=== PATIENT | male | born 1945 | race Caucasian/White ===

== ENCOUNTER 2021-09-25 15:06 | Inpatient (IN) ==
[2021-09-25 16:00] LABS: ABS Basophils 0.1 10^3/ul (0-0.2); ABS Lymphocytes 0.8 10^3/ul (1.0-4.8); ABS Monocytes 0.7 10^3/ul (0-0.8); ABS Neutrophils 7.7 10^3/ul (1.5-7.7); Eosinophil % 0.4 %; Hematocrit 41 % (42-52); Hemoglobin 13.1 g/dL (14.0-18.0); Lymphocyte % 8.7 %; Mean Corpuscular HGB Conc 32 g/dL (31-36); Mean Corpuscular Hemoglobin 26 pg (27-31); Mean Corpuscular Volume 80 fL (80-94); Mean Platelet Volume 8.2 fL (7.4-10.4); Nucleated Red Blood Cells % 0.1; Platelet Count 209 10^3/uL (150-450); Red Cell Distribution Width 17 % (10-15); White Blood Count 9.2 10^3/uL (3.5-10.8)
[2021-09-25 16:19] LABS: ALT 11 U/L (7-52); AST 18 U/L (13-39); Albumin 4.2 g/dL (3.2-5.2); Albumin/Globulin Ratio 1.5 (1-3); Alkaline Phosphatase 72 U/L (35-149); Anion Gap 6 mmol/L (2-11); Blood Urea Nitrogen 17 mg/dL (6-24); C Reactive Protein 33.72 mg/L (<8.01); CO2 Carbon Dioxide 29 mmol/L (22-32); Calcium 10.6 mg/dL (8.6-10.3); Chloride 104 mmol/L (101-111); Globulin 2.8 g/dL (2-4); Glucose 111 mg/dL (70-100); Potassium 3.6 mmol/L (3.5-5.0); Sodium 139 mmol/L (135-145)
[2021-09-25 16:22] LABS: Troponin I 0.68 ng/mL (<0.03)
[2021-09-25 16:33] LABS: Influenza A Molecular Negative (Negative); Influenza B Molecular Negative (Negative); Rapid COVID-19 Molecular Undetected (Undetected)
[2021-09-25] MEDS ORDERED: Magnesium Hydroxide LIQ 30 ML UDC PO PRN (17:51)
[2021-09-25] MEDS ORDERED: Ondansetron 4 mg VIAL 2 MG/ML 2 ml VIAL IV PRN (17:51)
[2021-09-25] MEDS ORDERED: Iodixanol (CONTRAST) 320 MG/ML 100 ML SDV IV ONE (18:02)
[2021-09-25 18:44] LABS: Urine Appearance Clear; Urine Bilirubin Negative (Negative); Urine Blood Negative (Negative); Urine Color Yellow; Urine Glucose Negative (Negative); Urine Ketones Negative (Negative); Urine Nitrite Negative (Negative); Urine Protein Negative (Negative); Urine Specific Gravity 1.014 (1.002-1.030); Urine Urobilinogen Negative (Negative)
[2021-09-25] MEDS ORDERED: Heparin 5000 UNITS/ML 1 mL VIAL IV SCH (19:00)
[2021-09-25 19:28] LABS: Troponin I 0.94 ng/mL (<0.03)
[2021-09-25 20:21] LABS: TSH Ultra Thyroid Stim Horm 1.93 mcIU/mL (0.34-5.60)
[2021-09-25 20:42] LABS: Calcium (PTH Intact) 10.5 mg/dL (8.6-10.3)
[2021-09-25] MEDS ORDERED: Lithium Carb ER 300 mg TAB(NF) PO SCH (21:00)
[2021-09-25] MEDS: Heparin DRIP 25,000 UNITS BAG 25,000 UNITS/500 ML BAG IV SCH (21:31)
[2021-09-25] MEDS: buPROPion SR 100 mg TAB.SR PO SCH (23:01)
[2021-09-26 01:30] LABS: Troponin I 0.67 ng/mL (<0.03)
[2021-09-26 03:40] LABS: ABS Basophils 0.1 10^3/ul (0-0.2); ABS Eosinophils 0.1 10^3/ul (0-0.6); ABS Lymphocytes 1.5 10^3/ul (1.0-4.8); ABS Monocytes 0.8 10^3/ul (0-0.8); ABS Neutrophils 6.6 10^3/ul (1.5-7.7); Eosinophil % 0.9 %; Hematocrit 39 % (42-52); Hemoglobin 12.5 g/dL (14.0-18.0); Lymphocyte % 16.9 %; Mean Corpuscular HGB Conc 32 g/dL (31-36); Mean Corpuscular Hemoglobin 26 pg (27-31); Mean Corpuscular Volume 80 fL (80-94); Platelet Count 200 10^3/uL (150-450); Red Blood Count 4.86 10^6 /uL (4.18-5.48); Red Cell Distribution Width 17 % (10-15); White Blood Count 9.1 10^3/uL (3.5-10.8)
[2021-09-26 03:51] LABS: Calcium 10.1 mg/dL (8.6-10.3); Potassium 3.3 mmol/L (3.5-5.0)
[2021-09-26 03:56] LABS: HDL Cholesterol 54.3 mg/dL; eGFR CKD-EPI 42.2 (>60)
[2021-09-26 04:41] LABS: Ferritin 26.8 ng/mL (24-336)
[2021-09-26] MEDS ORDERED: Aspirin EC 81 mg TAB.EC (enteric coated) PO SCH (09:00)
[2021-09-26] MEDS: CMCS:Lithium Carb ER 300 mg TAB(NF) PO SCH (09:13)
[2021-09-26] MEDS: Potassium Chlor 20 meq TAB.ER PO SCH ×2 (10:18→13:05)
[2021-09-26] MEDS ORDERED: Perflutren Lipid Microsphere 3 ML VIAL ONE (12:08)
[2021-09-26] MEDS: Polyethylene Glycol 3350 17 GM PACKET PO SCH (13:01)
[2021-09-26] MEDS: Heparin DRIP 25,000 UNITS BAG 25,000 UNITS/500 ML BAG IV SCH (14:02)
[2021-09-26] MEDS: buPROPion SR 100 mg TAB.SR PO SCH (21:47)
[2021-09-27 06:33] LABS: ABS Basophils 0.1 10^3/ul (0-0.2); ABS Eosinophils 0.1 10^3/ul (0-0.6); ABS Lymphocytes 1.2 10^3/ul (1.0-4.8); ABS Monocytes 0.8 10^3/ul (0-0.8); ABS Neutrophils 6.9 10^3/ul (1.5-7.7); Eosinophil % 0.9 %; Hematocrit 36 % (42-52); Hemoglobin 11.4 g/dL (14.0-18.0); Mean Corpuscular HGB Conc 32 g/dL (31-36); Mean Corpuscular Hemoglobin 26 pg (27-31); Mean Corpuscular Volume 82 fL (80-94); Mean Platelet Volume 8.3 fL (7.4-10.4); Platelet Count 201 10^3/uL (150-450); Red Blood Count 4.41 10^6 /uL (4.18-5.48); Red Cell Distribution Width 17 % (10-15)
[2021-09-27 06:51] LABS: Potassium 3.5 mmol/L (3.5-5.0); eGFR CKD-EPI 49.7 (>60)
[2021-09-27] MEDS: Heparin DRIP 25,000 UNITS BAG 25,000 UNITS/500 ML BAG IV SCH (06:55)
[2021-09-27] MEDS: Polyethylene Glycol 3350 17 GM PACKET PO SCH (08:32)
[2021-09-27] MEDS: CMCS:Lithium Carb ER 300 mg TAB(NF) PO SCH (08:32)
[2021-09-27 15:35] LABS: % Iron Saturation 10 % (14 - 50); Total Iron Binding Capacity 300 mcg/dL (250 - 400); Transferrin 254 mg/dL (200 - 360)
[2021-09-27 20:34] LABS: ABS Basophils 0.1 10^3/ul (0-0.2); ABS Eosinophils 0.1 10^3/ul (0-0.6); ABS Lymphocytes 1.4 10^3/ul (1.0-4.8); ABS Monocytes 0.8 10^3/ul (0-0.8); Hematocrit 35 % (42-52); Hemoglobin 11.1 g/dL (14.0-18.0); Lymphocyte % 14.6 %; Mean Corpuscular HGB Conc 32 g/dL (31-36); Mean Corpuscular Hemoglobin 26 pg (27-31); Mean Corpuscular Volume 81 fL (80-94); Mean Platelet Volume 8.2 fL (7.4-10.4); Platelet Count 201 10^3/uL (150-450); Red Blood Count 4.26 10^6 /uL (4.18-5.48); Red Cell Distribution Width 17 % (10-15); White Blood Count 9.4 10^3/uL (3.5-10.8)
[2021-09-27 20:34] LABS: Venous Bicarbonate HCO3 28.5 mmol/L (24-28)
[2021-09-27 20:52] LABS: Calcium 9.8 mg/dL (8.6-10.3); Potassium 3.8 mmol/L (3.5-5.0); eGFR CKD-EPI 46.2 (>60)
[2021-09-27] MEDS: Iron Sucrose 200 MG in NS 0.9% 100 ml BAG 100 ML IVPB SCH (21:57)
[2021-09-27] MEDS: buPROPion SR 100 mg TAB.SR PO SCH (21:58)
[2021-09-28] MEDS: Heparin DRIP 25,000 UNITS BAG 25,000 UNITS/500 ML BAG IV SCH ×2 (00:07→18:06)
[2021-09-28 06:06] LABS: ABS Basophils 0.1 10^3/ul (0-0.2); ABS Eosinophils 0.1 10^3/ul (0-0.6); ABS Lymphocytes 1.1 10^3/ul (1.0-4.8); ABS Monocytes 0.7 10^3/ul (0-0.8); ABS Neutrophils 6.8 10^3/ul (1.5-7.7); Eosinophil % 0.9 %; Hematocrit 37 % (42-52); Hemoglobin 11.8 g/dL (14.0-18.0); Lymphocyte % 12.5 %; Mean Corpuscular HGB Conc 32 g/dL (31-36); Mean Corpuscular Hemoglobin 26 pg (27-31); Mean Corpuscular Volume 81 fL (80-94); Mean Platelet Volume 8.1 fL (7.4-10.4); Platelet Count 198 10^3/uL (150-450); Red Blood Count 4.58 10^6 /uL (4.18-5.48); Red Cell Distribution Width 17 % (10-15); White Blood Count 8.8 10^3/uL (3.5-10.8)
[2021-09-28 06:28] LABS: Calcium 10.3 mg/dL (8.6-10.3); Potassium 3.8 mmol/L (3.5-5.0); eGFR CKD-EPI 49.7 (>60)
[2021-09-28] MEDS: CMCS:Lithium Carb ER 300 mg TAB(NF) PO SCH (08:49)
[2021-09-28] MEDS: Iron Sucrose 200 MG in NS 0.9% 100 ml BAG 100 ML IVPB SCH (08:49)
[2021-09-28] MEDS: Polyethylene Glycol 3350 17 GM PACKET PO SCH (08:49)
[2021-09-28 09:11] LABS: INR 1.19 (0.86-1.15)
[2021-09-28] MEDS ORDERED: fentaNYL 100 mcg/2 ml 50 MCG/ML VIAL ONE ×2 (09:43→14:02)
[2021-09-28] MEDS ORDERED: Heparin 2 UNITS/ML 1000 mls 1,000 ML IV ONE (09:43)
[2021-09-28] MEDS ORDERED: Lidocaine 1% VIAL 10 MG/ML VIAL ONE (13:28)
[2021-09-28] MEDS ORDERED: Iohexol 350 (CONTRAST) 200 ML MDV IV ONE (13:29)
[2021-09-28] MEDS ORDERED: Heparin 2 UNITS/ML IVPREMIX 1,000 UNIT/500 ML BAG IV ONE (13:29)
[2021-09-28] MEDS ORDERED: Iodixanol 320 (CONTRAST) 100 ML SDV ONE (13:31)
[2021-09-28] MEDS: buPROPion SR 100 mg TAB.SR PO SCH (21:51)
[2021-09-28] MEDS ORDERED: Naloxone Nasal Spray 4 MG/0.1 ML NASAL.SPR INTRANASAL ONE (23:56)
[2021-09-29 00:56] LABS: Venous Bicarbonate HCO3 29.9 mmol/L (24-28)
[2021-09-29 01:12] LABS: ABS Basophils 0.1 10^3/ul (0-0.2); ABS Eosinophils 0.1 10^3/ul (0-0.6); ABS Monocytes 0.8 10^3/ul (0-0.8); Eosinophil % 1.6 %; Hematocrit 37 % (42-52); Hemoglobin 11.8 g/dL (14.0-18.0); Lymphocyte % 11.6 %; Mean Corpuscular HGB Conc 32 g/dL (31-36); Mean Corpuscular Hemoglobin 26 pg (27-31); Mean Corpuscular Volume 81 fL (80-94); Mean Platelet Volume 8.3 fL (7.4-10.4); Platelet Count 218 10^3/uL (150-450); Red Blood Count 4.56 10^6 /uL (4.18-5.48); Red Cell Distribution Width 17 % (10-15)
[2021-09-29 01:21] LABS: Albumin 3.7 g/dL (3.2-5.2); Albumin/Globulin Ratio 1.2 (1-3); Calcium 10.5 mg/dL (8.6-10.3); Globulin 3.1 g/dL (2-4); Potassium 3.9 mmol/L (3.5-5.0); Total Bilirubin 0.7 mg/dL (0.2-1.0); Total Protein 6.8 g/dL (6.4-8.9); eGFR CKD-EPI 50.2 (>60)
[2021-09-29 07:20] LABS: eGFR CKD-EPI 52.8 (>60)
[2021-09-29] MEDS: Polyethylene Glycol 3350 17 GM PACKET PO SCH (10:21)
[2021-09-29] MEDS: Iron Sucrose 200 MG in NS 0.9% 100 ml BAG 100 ML IVPB SCH (10:21)
[2021-09-29] MEDS: CMCS:Lithium Carb ER 300 mg TAB(NF) PO SCH (10:25)
[2021-09-29 19:12] LABS: Lithium 0.53 mmol/L (0.6-1.2)
[2021-09-29] MEDS ORDERED: Furosemide 20 mg/2 ml IV VIAL IV SLOW PU ONE (19:17)
[2021-09-29] MEDS ORDERED: Iodixanol (CONTRAST) 320 MG/ML 100 ML SDV IV ONE ×2 (19:22→19:24)
[2021-09-29] MEDS: buPROPion SR 100 mg TAB.SR PO SCH (20:53)
[2021-09-30 02:06] LABS: Folate > 20.00 ng/mL (5.90-24.80)
[2021-09-30 02:07] LABS: Vitamin B12 564 pg/mL (180-914)
[2021-09-30 07:37] LABS: ABS Basophils 0.1 10^3/ul (0-0.2); ABS Eosinophils 0.1 10^3/ul (0-0.6); ABS Lymphocytes 0.9 10^3/ul (1.0-4.8); ABS Monocytes 0.6 10^3/ul (0-0.8); ABS Neutrophils 6.2 10^3/ul (1.5-7.7); Eosinophil % 1.7 %; Hematocrit 35 % (42-52); Hemoglobin 11.2 g/dL (14.0-18.0); Lymphocyte % 10.8 %; Mean Corpuscular HGB Conc 32 g/dL (31-36); Mean Corpuscular Hemoglobin 26 pg (27-31); Mean Corpuscular Volume 81 fL (80-94); Nucleated Red Blood Cells % 0.1; Platelet Count 216 10^3/uL (150-450); Red Blood Count 4.31 10^6 /uL (4.18-5.48); Red Cell Distribution Width 17 % (10-15); White Blood Count 7.9 10^3/uL (3.5-10.8)
[2021-09-30 07:54] LABS: Albumin 3.5 g/dL (3.2-5.2); Albumin/Globulin Ratio 1.1 (1-3); Calcium 10.8 mg/dL (8.6-10.3); Globulin 3.3 g/dL (2-4); Total Bilirubin 0.7 mg/dL (0.2-1.0); Total Protein 6.8 g/dL (6.4-8.9); eGFR CKD-EPI 49.3 (>60)
[2021-09-30 08:32] LABS: Lithium 0.41 mmol/L (0.6-1.2)
[2021-09-30] MEDS: Iron Sucrose 200 MG in NS 0.9% 100 ml BAG 100 ML IVPB SCH (09:17)
[2021-09-30] MEDS: CMCS:Lithium Carb ER 300 mg TAB(NF) PO SCH (09:18)
[2021-09-30] MEDS: Polyethylene Glycol 3350 17 GM PACKET PO SCH (09:20)
[2021-09-30] MEDS: buPROPion SR 100 mg TAB.SR PO SCH (21:22)
[2021-10-01] MEDS: Polyethylene Glycol 3350 17 GM PACKET PO SCH (09:20)
[2021-10-01] MEDS: CMCS:Lithium Carb ER 300 mg TAB(NF) PO SCH (09:21)
[2021-10-01] MEDS: Iron Sucrose 200 MG in NS 0.9% 100 ml BAG 100 ML IVPB SCH (09:38)
[2021-10-01 16:02] LABS: Potassium 4.1 mmol/L (3.5-5.0)
[2021-10-01 16:03] LABS: eGFR CKD-EPI 46.6 (>60)
[2021-10-01 17:23] LABS: Albumin 2.9 g/dL (3.4-4.7); Albumin/Globulin Ratio 0.85; Total Protein(PEP) 6.3 g/dL (6.3 - 7.9)
[2021-10-01] MEDS: buPROPion SR 100 mg TAB.SR PO SCH (20:24)
[2021-10-02] MEDS: CMCS:Lithium Carb ER 300 mg TAB(NF) PO SCH (09:17)
[2021-10-02] MEDS: Polyethylene Glycol 3350 17 GM PACKET PO SCH (09:19)
[2021-10-02] MEDS: buPROPion SR 100 mg TAB.SR PO SCH (20:22)
[2021-10-03] MEDS: CMCS:Lithium Carb ER 300 mg TAB(NF) PO SCH (09:21)
[2021-10-03] MEDS: Polyethylene Glycol 3350 17 GM PACKET PO SCH (09:24)
[2021-10-03 09:25] LABS: ABS Basophils 0.1 10^3/ul (0-0.2); ABS Eosinophils 0.1 10^3/ul (0-0.6); ABS Lymphocytes 0.7 10^3/ul (1.0-4.8); ABS Monocytes 0.5 10^3/ul (0-0.8); ABS Neutrophils 5.7 10^3/ul (1.5-7.7); Eosinophil % 1.6 %; Hematocrit 36 % (42-52); Hemoglobin 11.7 g/dL (14.0-18.0); Lymphocyte % 9.4 %; Mean Corpuscular HGB Conc 32 g/dL (31-36); Mean Corpuscular Hemoglobin 26 pg (27-31); Mean Corpuscular Volume 82 fL (80-94); Mean Platelet Volume 8.2 fL (7.4-10.4); Platelet Count 254 10^3/uL (150-450); Red Blood Count 4.43 10^6 /uL (4.18-5.48); Red Cell Distribution Width 17 % (10-15); White Blood Count 7.1 10^3/uL (3.5-10.8)
[2021-10-03 09:41] LABS: Calcium 11.5 mg/dL (8.6-10.3); Magnesium 2.2 mg/dL (1.9-2.7); Potassium 3.9 mmol/L (3.5-5.0); eGFR CKD-EPI 45.9 (>60)
[2021-10-03] MEDS: Iron Sucrose 200 MG in NS 0.9% 100 ml BAG 100 ML IVPB SCH (10:13)
[2021-10-03] MEDS ORDERED: Calcitonin NASAL(NF) 200 UNITS/SPRAY NASAL.SPR ALT NARE SCH (12:00)
[2021-10-03] MEDS: Calcitonin NASAL(NF) 200 UNITS/SPRAY NASAL.SPR ALT NARE SCH ×2 (13:51→20:49)
[2021-10-03] MEDS: buPROPion SR 100 mg TAB.SR PO SCH (20:48)
[2021-10-04 06:04] LABS: ABS Basophils 0.2 10^3/ul (0-0.2); ABS Eosinophils 0.1 10^3/ul (0-0.6); ABS Monocytes 0.7 10^3/ul (0-0.8); ABS Neutrophils 5.1 10^3/ul (1.5-7.7); Eosinophil % 1.8 %; Hematocrit 36 % (42-52); Hemoglobin 11.8 g/dL (14.0-18.0); Mean Corpuscular HGB Conc 33 g/dL (31-36); Mean Corpuscular Hemoglobin 27 pg (27-31); Mean Corpuscular Volume 82 fL (80-94); Mean Platelet Volume 8.4 fL (7.4-10.4); Nucleated Red Blood Cells % 0.1; Platelet Count 254 10^3/uL (150-450); Red Blood Count 4.45 10^6 /uL (4.18-5.48); Red Cell Distribution Width 17 % (10-15)
[2021-10-04 06:19] LABS: Calcium 11.1 mg/dL (8.6-10.3); Magnesium 2.1 mg/dL (1.9-2.7); Potassium 3.9 mmol/L (3.5-5.0); eGFR CKD-EPI 46.2 (>60)
[2021-10-04 06:58] LABS: Vitamin D Total 25(OH) 28.1 ng/mL (20-50)
[2021-10-04] MEDS ORDERED: Zoledronic Acid 4 MG in NS 0.9% 100 ml BAG 100 ML IVPB ONE (09:00)
[2021-10-04] MEDS: Iron Sucrose 200 MG in NS 0.9% 100 ml BAG 100 ML IVPB SCH (10:33)
[2021-10-04] MEDS: CMCS:Lithium Carb ER 300 mg TAB(NF) PO SCH (10:33)
[2021-10-04] MEDS: Polyethylene Glycol 3350 17 GM PACKET PO SCH (10:33)
[2021-10-04] MEDS: Calcitonin NASAL(NF) 200 UNITS/SPRAY NASAL.SPR ALT NARE SCH ×2 (10:35→21:33)
[2021-10-04] MEDS: Cholecalciferol (VIT D3) 1,000 unit TAB PO SCH (12:46)
[2021-10-04] MEDS: buPROPion SR 100 mg TAB.SR PO SCH (21:32)
[2021-10-05] MEDS: CMCS:Lithium Carb ER 300 mg TAB(NF) PO SCH (09:25)
[2021-10-05] MEDS: Polyethylene Glycol 3350 17 GM PACKET PO SCH (09:36)
[2021-10-05 10:15] LABS: ABS Basophils 0.1 10^3/ul (0-0.2); ABS Eosinophils 0.1 10^3/ul (0-0.6); ABS Lymphocytes 0.6 10^3/ul (1.0-4.8); ABS Monocytes 0.6 10^3/ul (0-0.8); ABS Neutrophils 5.5 10^3/ul (1.5-7.7); Eosinophil % 1.5 %; Hematocrit 39 % (42-52); Hemoglobin 12.4 g/dL (14.0-18.0); Lymphocyte % 8.5 %; Mean Corpuscular HGB Conc 32 g/dL (31-36); Mean Corpuscular Hemoglobin 26 pg (27-31); Mean Corpuscular Volume 83 fL (80-94); Mean Platelet Volume 8.2 fL (7.4-10.4); Nucleated Red Blood Cells % 0.1; Platelet Count 256 10^3/uL (150-450); Red Cell Distribution Width 17 % (10-15)
[2021-10-05 10:37] LABS: Albumin 3.7 g/dL (3.2-5.2); Albumin/Globulin Ratio 1.2 (1-3); Calcium 10.3 mg/dL (8.6-10.3); Globulin 3.1 g/dL (2-4); Magnesium 2.2 mg/dL (1.9-2.7); Potassium 3.9 mmol/L (3.5-5.0); Total Bilirubin 0.6 mg/dL (0.2-1.0); Total Protein 6.8 g/dL (6.4-8.9); eGFR CKD-EPI 39.4 (>60)
[2021-10-05 11:38] VITALS: BP 147/61
[2021-10-05] MEDS: Cholecalciferol (VIT D3) 1,000 unit TAB PO SCH (12:00)
== END 2021-10-05 12:50 | disposition home health service (06) | DRG 175 ==
LOC: EDHOLD 15:06 → ED 15:06 → MEDTELE 22:12 → SUATTDRO 09-26 10:00
PROVIDERS: ADMIT Internal Medicine; ATTEND Student in an Organized Health Care Education/Training Program

== ENCOUNTER 2023-09-10 06:59 | Observation (INO) ==
[2023-09-10 07:50] LABS: ABS Basophils 0.1 10^3/uL (0.0-0.1); ABS Eosinophils 0.1 10^3/uL (0.0-0.5); ABS Lymphocytes 1.3 10^3/uL (1.0-4.8); ABS Monocytes 0.5 10^3/uL (0.0-1.1); ABS Neutrophils 3.3 10^3/uL (1.5-7.6); Eosinophil % 2.3 %; Hematocrit 32.4 % (38-53); Hemoglobin 10.3 g/dL (13.2-16.3); Lymphocyte % 24.1 %; Mean Corpuscular Hemoglobin 26.3 pg (27-33); Mean Corpuscular Hgb Conc 31.9 g/dL (31-36); Mean Corpuscular Volume 82.3 fL (80-97); Mean Platelet Volume 8.6 fL (7.5-11.2); Nucleated Red Blood Cells % 0.1 %/100WBC (0.0-0.8); Platelet Count 146 10^3/uL (150-450); Red Blood Count 3.94 10^6/uL (4.06-5.63); White Blood Count 5.3 10^3/uL (3.6-10.2)
[2023-09-10 07:58] LABS: INR 1.05 (0.83-1.13)
[2023-09-10 08:09] LABS: Albumin 3.7 g/dL (3.2-5.2); Albumin/Globulin Ratio 1.8 (1-3); Calcium 9.2 mg/dL (8.6-10.3); Creatinine, Serum 1.98 mg/dL (0.67-1.17); Globulin 2.1 g/dL (2-4); Potassium 4.2 mmol/L (3.5-5.0); Total Bilirubin 0.4 mg/dL (0.2-1.0); Total Protein 5.8 g/dL (6.4-8.9); eGFR CKD-EPI 33.5 (>60)
[2023-09-10] MEDS ORDERED: Iodixanol (CONTRAST) 320 MG/ML 100 ML SDV IV ONE (08:47)
[2023-09-10 09:32] LABS: High Sensitivity Troponin 1 Hr 7 pg/mL (<20)
[2023-09-10 13:15] LABS: High Sensitivity Troponin 3 Hr 8 pg/mL (<20)
[2023-09-10] MEDS ORDERED: Sulfur Hexaflouride MICROSPHR 25 MG VIAL ONE (14:07)
[2023-09-11 06:37] LABS: ABS Basophils 0.1 10^3/uL (0.0-0.1); ABS Eosinophils 0.1 10^3/uL (0.0-0.5); ABS Lymphocytes 1.2 10^3/uL (1.0-4.8); ABS Monocytes 0.5 10^3/uL (0.0-1.1); ABS Neutrophils 3.6 10^3/uL (1.5-7.6); ABS Nucleated RBC 0.01 10^3/ul; Eosinophil % 1.5 %; Hematocrit 32.1 % (38-53); Hemoglobin 10.5 g/dL (13.2-16.3); Lymphocyte % 21.7 %; Mean Corpuscular Hemoglobin 26.7 pg (27-33); Mean Corpuscular Hgb Conc 32.8 g/dL (31-36); Mean Corpuscular Volume 81.5 fL (80-97); Mean Platelet Volume 8.7 fL (7.5-11.2); Nucleated Red Blood Cells % 0.1 %/100WBC (0.0-0.8); Platelet Count 151 10^3/uL (150-450); Red Blood Count 3.94 10^6/uL (4.06-5.63); Red Cell Distribution Width 21.2 % (12-17); White Blood Count 5.4 10^3/uL (3.6-10.2)
[2023-09-11] MEDS ORDERED: Regadenoson 0.4 MG/5 ML SYRINGE ONE (07:48)
[2023-09-11 07:58] LABS: Calcium 9.5 mg/dL (8.6-10.3); Creatinine, Serum 1.77 mg/dL (0.67-1.17); Potassium 4.1 mmol/L (3.5-5.0); eGFR CKD-EPI 38.3 (>60)
[2023-09-11 11:09] VITALS: BP 136/69
== END 2023-09-11 14:04 | disposition home or self-care (01) ==
LOC: EDHOLD 06:59 → ED 06:59 → MEDTELE 17:29
PROVIDERS: ADMIT Student in an Organized Health Care Education/Training Program; ATTEND Student in an Organized Health Care Education/Training Program